=== PATIENT | male | born 1995 | race Caucasian/White ===

== ENCOUNTER 2017-01-30 19:59 | Emergency (ER) | payer SELFPAY ==
[~2017-01-30] VITALS: Ht 175.3 cm; Wt 57.6 kg
[~2017-01-30 19:59] MED LIST: DICY20TA3 PO; ONDA4TAB10 PO
[2017-01-30 20:00] VITALS: BP 131/75
--- NOTE | 2017-01-30 20:04 | ED.ADGEN ---
Past History Past Medical History: No Pertinent History Past Surgical History: Appendectomy Smoking: Non-smoker Alcohol Use: Rarely Drug Use: None Adult General Chief Complaint Chief Complaint Abdominal pain HPI HPI Patient is a 21 year old male who presents with I'll pain. He states been going on for several weeks. Very intermittent but this is been a baseline in the right lower quadrant and then today started going to the left lower quadrant. He states he did have loose stools yesterday times one. He also complains of some burning with urination for the last several weeks states the pain got worse at noon when he woke up so he went to [facility] and had a CT scan and labs done then. He states he was told he had free fluid in his pelvis and was told follow-up. He was discharged with tramadol every he has not yet to get this filled. He presents to the ER tonjuma stating the pain has gotten worse since he was seen earlier today. States the pain is a 10 out 10 minutes and bilateral lower quadrants and feels like his testicles are hurting. He states he's had his appendix removed in 2013. Otherwise he denies any past medical history or any medications. Review of Systems Review of Systems Constitutional: Denies fever or chills [] Eyes: Denies change in visual acuity, redness, or eye pain [] HENT: Denies nasal congestion or sore throat [] Respiratory: Denies cough or shortness of breath [] Cardiovascular: No additional information not addressed in HPI [] GI: Denies abdominal pain, nausea, vomiting, bloody stools or diarrhea [] : Denies dysuria or hematuria [] Musculoskeletal: Denies back pain or joint pain [] Integument: Denies rash or skin lesions [] Neurologic: Denies headache, focal weakness or sensory changes [] Endocrine: Denies polyuria or polydipsia [] Current Medications Current Medications Current Medications Medications (Trade) Dose Ordered Sig/Iliana Start Time Stop Time Status Last Admin Dose Admin Morphine Sulfate (Morphine 2mg Syringe) 2 mg PRN Q15MIN PRN 01/30/17 20:30 01/31/17 20:29 01/30/17 21:15 2 MG Ondansetron HCl (Zofran) 4 mg 1X ONCE 01/30/17 20:45 01/30/17 20:46 DC 01/30/17 20:45 4 MG Sodium Chloride 1,000 ml @ 1,000 mls/hr Q1H 01/30/17 20:45 01/30/17 21:44 DC 01/30/17 20:45 1,000 MLS/HR Allergies Allergies Allergies Coded Allergies Type Severity Reaction Last Updated Verified No Known Drug Allergies 10/24/13 No Physical Exam Physical Exam Constitutional: Well developed, well nourished, no acute distress, non-toxic appearance. [] HENT: Normocephalic, atraumatic, bilateral external ears normal, oropharynx moist, no oral exudates, nose normal. [] Eyes: PERRLA, EOMI, conjunctiva normal, no discharge. [] Neck: Normal range of motion, no tenderness, supple, no stridor. [] Cardiovascular:Heart rate regular rhythm, no murmur [] Lungs & Thorax: Bilateral breath sounds clear to auscultation [] Abdomen/testicles: Bowel sounds normal, soft, nontender to palpation diffusely, no rebound or guarding no masses, no pulsatile masses. Testicles tender bilaterally no masses appreciated Skin: Warm, dry, no erythema, no rash. [] Back: No tenderness, no CVA tenderness. [] Extremities: No tenderness, no cyanosis, no clubbing, ROM intact, no edema. [] Neurologic: Alert and oriented X 3, normal motor function, normal sensory function, no focal deficits noted. [] Psychologic: Affect normal, judgement normal, mood normal. [] Current Patient Data Vital Signs Vital Signs Date Time Temp Pulse Resp B/P (MAP) Pulse Ox O2 Delivery O2 Flow Rate FiO2 01/30/17 21:15 20 98 Room Air Lab Results Laboratory Tests Test 01/30/17 20:50 01/30/17 20:55 Urine Collection Type Unknown Urine Color Diana Urine Clarity Clear Urine pH 7.0 Urine Specific [place] 1.015 Urine Protein 30 mg/dl (NEG-TRACE) Urine Glucose (UA) Neg mg/dL (NEG) Urine Ketones (Stick) Neg mg/dL (NEG) Urine Blood Small (NEG) Urine Nitrite Neg (NEG) Urine Bilirubin Neg (NEG) Urine Urobilinogen Dipstick 0.2 mg/dL (0.2 mg/dL) Urine Leukocyte Esterase Neg (NEG) Urine RBC 1-2 /HPF (0-2) Urine WBC Rare /HPF (0-4) Urine Squamous Epithelial Cells Occ /LPF Urine Bacteria 0 /HPF (0-FEW) Urine Opiates Screen Neg (NEG) Urine Methadone Screen Neg (NEG) Urine Barbiturates Neg (NEG) Urine Phencyclidine Screen Neg (NEG) Urine Amphetamine/Methamphetamine Neg (NEG) Urine Benzodiazepines Screen Neg (NEG) Urine Cocaine Screen Neg (NEG) Urine Cannabinoids Screen Pos (NEG) Urine Ethyl Alcohol Neg (NEG) White Blood Count 7.6 x10^3/uL (4.0-11.0) Red Blood Count 4.77 x10^6/uL (4.30-5.70) Hemoglobin 14.5 g/dL (13.0-17.5) Hematocrit 41.8 % (39.0-53.0) Mean Corpuscular Volume 88 fL (79-100) Mean Corpuscular Hemoglobin 30 pg (25-35) Mean Corpuscular Hemoglobin Concent 35 g/dL (31-37) Red Cell Distribution Width 13.0 % (11.5-14.5) Platelet Count 277 x10^3/uL (140-400) Neutrophils (%) (Auto) 62 % (31-73) Lymphocytes (%) (Auto) 25 % (24-48) Monocytes (%) (Auto) 11 % (0-9) H Eosinophils (%) (Auto) 1 % (0-3) Basophils (%) (Auto) 0 % (0-3) Neutrophils # (Auto) 4.7 x10^3uL (1.8-7.7) Lymphocytes # (Auto) 1.9 x10^3/uL (1.0-4.8) Monocytes # (Auto) 0.9 x10^3/uL (0.0-1.1) Eosinophils # (Auto) 0.1 x10^3/uL (0.0-0.7) Basophils # (Auto) 0.0 x10^3/uL (0.0-0.2) Sodium Level 141 mmol/L (136-145) Potassium Level 3.6 mmol/L (3.5-5.1) Chloride Level 105 mmol/L (98-107) Carbon Dioxide Level 29 mmol/L (21-32) Anion Gap 7 (6-14) Blood Urea Nitrogen 11 mg/dL (8-26) Creatinine 0.9 mg/dL (0.7-1.3) Estimated GFR (Cockcroft-Gault) 106.5 Glucose Level 99 mg/dL (70-99) Calcium Level 9.2 mg/dL (8.5-10.1) Total Bilirubin 0.4 mg/dL (0.2-1.0) Direct Bilirubin 0.2 mg/dL (0.0-0.2) Aspartate Amino Transferase (AST) 13 U/L (15-37) L Alanine Aminotransferase (ALT) 24 U/L (16-63) Alkaline Phosphatase 67 U/L (46-116) Creatine Kinase 81 U/L (39-308) Creatine Kinase MB (Mass) < 0.5 ng/mL (0.0-3.6) Creatine Kinase MB Relative Index 0.6 % (0-4) Total Protein 7.8 g/dL (6.4-8.2) Albumin 4.0 g/dL (3.4-5.0) Lipase 90 U/L (73-393) EKG EKG [] Radiology/Procedures Radiology/Procedures [address] [id number] IMAGING REPORT Signed PATIENT: DAY LOGAN ACCOUNT: [id number] : 1995 LOCATION: ER AGE: 21 SEX: M EXAM STATUS: REG ER ORD. PHYSICIAN: BLOSSOM KIM MD REASON: abd pain PROCEDURE: ABDOMEN COMPLETE PROCEDURE Complete abdomen ultrasound HISTORY Diffuse abdominal pain TECHNIQUE Grayscale and color Doppler sonography were utilized COMPARISON No prior FINDINGS Spleen length 11.0 centimeters. Pancreas, proximal IVC and proximal abdominal aorta are normal. Normal liver echogenicity. No liver mass. No gallstones, gallbladder wall thickening, pericholecystic fluid or sonographic Watson sign. No biliary ductal dilation the common bile duct has a diameter 3 millimeters. Right renal length 11.3 centimeters, left renal length 12.0 centimeters, no evidence of right or left renal mass or hydronephrosis. IMPRESSION Normal exam. Electronically signed by: Genoveva Win MD (January 30, 2017 22:23:34) DICTATED AND SIGNED BY: GENOVEVA WIN MD DATE: 01/30/17 2222 CC: BLOSSOM KIM MD; RADHA NUGENT MD ~ [place] [id number] IMAGING REPORT Signed PATIENT: DAY LOGAN ACCOUNT: [id number] : 1995 LOCATION: ER AGE: 21 SEX: M EXAM STATUS: REG ER ORD. PHYSICIAN: BLOSSOM KIM MD REASON: abd pain PROCEDURE: TESTICULAR/SCROTUM PROCEDURE Testicular ultrasound HISTORY Testicular swelling and abdominal pain TECHNIQUE Grayscale and duplex Doppler sonography was utilized COMPARISON No prior FINDINGS Right testicle measures 4.0 x 2.9 x 2.0 centimeters. Left testicle measures 3.4 x 2.4 x 2.0 centimeters. No testicular mass, edema, microlithiasis or hypervascularity. There is symmetric intact bilateral testicular blood flow by duplex Doppler sonography with normal arterial waveforms documented. No enlargement or hypervascularity of the epididymis bilaterally. Left epididymal 8 millimeter cyst. No extratesticular mass. Minimal hydroceles. IMPRESSION Testicles are normal. Minimal hydroceles. 8 millimeter left epididymal cyst. Electronically signed by: Genoveva Win MD (January 30, 2017 22:24:58) DICTATED AND SIGNED BY: GENOVEVA WIN MD DATE: 01/30/172223 CC: BLOSSOM KIM MD; RADHA NUGENT MD ~ Course & Med Decision Making Course & Med Decision Making Pertinent Labs and Imaging studies reviewed. (See chart for details) Testicular and scrotal ultrasound, abdominal ultrasound did not show any acute abnormalities. I did obtain records from [facility] which shows a CT scan that has small pelvic ascites noted otherwise no other acute abnormality on his CT scan. Patient is feeling better he's been watched for 5 hours. His repeat abdominal exam is unremarkable. Patient's agreeable being discharged home and follow-up with clinic tomorrow. Return precautions given his real plan be discharged in stable condition at this time. Final Impression Final Impression Abdominal pain Problems: Dragon Disclaimer Dragon Disclaimer This electronic medical record was generated, in whole or in part, using a voice recognition dictation system. BLOSSOM KIM MD January 30, 2017 20:04
[2017-01-30] MEDS ORDERED: MORPHINE SULFATE 2 MG/ML DISP.SYRIN. IV/SQ PRN (20:30)
[2017-01-30] MEDS ORDERED: IV NORMAL SALINE 1,000ML 1,000 ML IV SCH (20:45)
[2017-01-30] MEDS ORDERED: ONDANSETRON PF 4 MG/2 ML VIAL. IV ONE (20:45)
[2017-01-30 21:15] LABS: BASO % 0 % (0-3); EOS # 0.1 x10^3/uL (0.0-0.7); EOS % 1 % (0-3); HEMATOCRIT 41.8 % (39.0-53.0); HEMOGLOBIN 14.5 g/dL (13.0-17.5); LYMPH # 1.9 x10^3/uL (1.0-4.8); LYMPH % 25 % (24-48); MEAN CORPUSCULAR HEMOGLOBIN 30 pg (25-35); MEAN CORPUSCULAR HGB CONC 35 g/dL (31-37); MEAN CORPUSCULAR VOLUME 88 fL (79-100); MONO # 0.9 x10^3/uL (0.0-1.1); MONO % 11 % (0-9); NEUT # 4.7 x10^3uL (1.8-7.7); NEUT % 62 % (31-73); PLATELET COUNT 277 x10^3/uL (140-400); RED BLOOD COUNT 4.77 x10^6/uL (4.30-5.70); WHITE BLOOD COUNT 7.6 x10^3/uL (4.0-11.0)
[2017-01-30 21:22] LABS: AMPHETAMINE/METHAMPHETAMINE NEG (NEG); BARBITURATES NEG (NEG); BENZODIAZEPINES NEG (NEG); CANNABINOIDS POS (NEG); COCAINE NEG (NEG); METHADONE NEG (NEG); OPIATES NEG (NEG); PHENCYCLIDINE NEG (NEG)
[2017-01-30 21:31] LABS: BILIRUBIN,URINE NEG (NEG); CLARITY,URINE CLEAR; COLOR,URINE AMBER; GLUCOSE,URINE NEG (NEG); NITRITE,URINE NEG (NEG); UROBILINOGEN,URINE 0.2 mg/dL (0.2 mg/dL)
[2017-01-30 21:32] LABS: BACTERIA,URINE 0 /HPF (0-FEW); SQUAMOUS EPITHELIAL CELL,UR OCC /LPF; WBC,URINE RARE /HPF (0-4)
[2017-01-30 21:32] LABS: ALK PHOS 67 U/L (46-116); ALT (SGPT) 24 U/L (16-63); ANION GAP 7 (6-14); AST (SGOT) 13 U/L (15-37); BLOOD UREA NITROGEN 11 mg/dL (8-26); CALCIUM 9.2 mg/dL (8.5-10.1); CARBON DIOXIDE 29 mmol/L (21-32); CHLORIDE 105 mmol/L (98-107); CREATINE KINASE 81 U/L (39-308); CREATININE 0.9 mg/dL (0.7-1.3); DIRECT BILIRUBIN 0.2 mg/dL (0.0-0.2); GFR 106.5; GLUCOSE 99 mg/dL (70-99); LIPASE 90 U/L (73-393); POTASSIUM 3.6 mmol/L (3.5-5.1); SODIUM 141 mmol/L (136-145); TOTAL BILIRUBIN 0.4 mg/dL (0.2-1.0); TOTAL PROTEIN 7.8 g/dL (6.4-8.2)
--- NOTE | 2017-01-30 22:25 | RAD ---
PROCEDURE Complete abdomen ultrasound HISTORY Diffuse abdominal pain TECHNIQUE Grayscale and color Doppler sonography were utilized COMPARISON No prior FINDINGS Spleen length 11.0 centimeters. Pancreas, proximal IVC and proximal abdominal aorta are normal. Normal liver echogenicity. No liver mass. No gallstones, gallbladder wall thickening, pericholecystic fluid or sonographic Watson sign. No biliary ductal dilation the common bile duct has a diameter 3 millimeters. Right renal length 11.3 centimeters, left renal length 12.0 centimeters, no evidence of right or left renal mass or hydronephrosis. IMPRESSION Normal exam. Electronically signed by: Demond Win MD (January 30, 2017 22:23:34)
--- NOTE | 2017-01-30 22:26 | RAD ---
PROCEDURE Testicular ultrasound HISTORY Testicular swelling and abdominal pain TECHNIQUE Grayscale and duplex Doppler sonography was utilized COMPARISON No prior FINDINGS Right testicle measures 4.0 x 2.9 x 2.0 centimeters. Left testicle measures 3.4 x 2.4 x 2.0 centimeters. No testicular mass, edema, microlithiasis or hypervascularity. There is symmetric intact bilateral testicular blood flow by duplex Doppler sonography with normal arterial waveforms documented. No enlargement or hypervascularity of the epididymis bilaterally. Left epididymal 8 millimeter cyst. No extratesticular mass. Minimal hydroceles. IMPRESSION Testicles are normal. Minimal hydroceles. 8 millimeter left epididymal cyst. Electronically signed by: Demond Win MD (January 30, 2017 22:24:58)
--- NOTE | 2017-01-31 07:11 | RAD ---
Indication: Lower abdominal pain. Time of exam 2040 hours. The heart size is normal. The lungs are clear. No free air is identified. The bowel gas pattern is nonobstructed. There is contrast within the urinary bladder. Impression: No acute abnormality is detected.
== END 2017-01-31 01:50 | disposition home or self-care (01) ==
LOC: ER 20:05
DX: R10.31 Right lower quadrant pain (principal); R39.198 Other difficulties with micturition; Z90.49 Acquired absence of other specified parts of digestive tract
CPT/HCPCS: 36415; 74022; 76700; 76870; 80048; 80076; 80305; 81001; 82553; 83690; 85027; 96361; 96374; 96375; 99285; J2270; J2405; G0481; J7030

== ENCOUNTER 2021-02-11 21:03 | Emergency (ER) | payer OTHER ==
[~2021-02-11] VITALS: Ht 172.7 cm; Wt 61.3 kg
[2021-02-11] MEDS ORDERED: SULF1TAB24 PO (21:50)
[2021-02-11] MEDS ORDERED: AMOX1TAB61 PO (21:50)
--- NOTE | 2021-02-11 21:50 | PHYS DOC ---
Past History Past Medical History: No Pertinent History Past Surgical History: Appendectomy Smoking: Non-smoker Alcohol Use: Rarely Drug Use: None General Adult EDM: Chief Complaint: SKIN RASH/ABSCESS HPI: HPI: 25-year-old male presents with a rash of the right arm. Patient got what he thought was a bug bite yesterday on his right wrist. Today he has a red streak up the right of his forearm all the way up his arm almost to the axilla. He decided this was not good and then came to the emergency room. He felt like he had a low-grade fever yesterday but not one today. Patient has no significant medical history. No history of MRSA. He has no other complaints at this time. Review of Systems: Review of Systems: Constitutional: Denies fever or chills Eyes: Denies change in visual acuity HENT: Denies nasal congestion or sore throat Respiratory: Denies cough or shortness of breath Cardiovascular: Denies chest pain or edema GI: Denies abdominal pain, nausea, vomiting, bloody stools or diarrhea : Denies dysuria Musculoskeletal: Denies back pain or joint pain Integument: Rash Neurologic: Denies headache, focal weakness or sensory changes Endocrine: Denies polyuria or polydipsia Lymphatic: Denies swollen glands Psychiatric: Denies depression or anxiety Allergies: Allergies: Allergies Coded Allergies Type Severity Reaction Last Updated Verified No Known Drug Allergies 10/24/13 No Physical Exam: PE: Constitutional: Well developed, well nourished, no acute distress, non-toxic appearance. [] HENT: Normocephalic, atraumatic, bilateral external ears normal, oropharynx moist, no oral exudates, nose normal. [] Eyes: PERRLA, EOMI, conjunctiva normal, no discharge. [] Neck: Normal range of motion, no tenderness, supple, no stridor. [] Cardiovascular:Heart rate regular rhythm, no murmur [] Lungs & Thorax: Bilateral breath sounds clear to auscultation [] Abdomen: Bowel sounds normal, soft, no tenderness, no masses, no pulsatile masses. [] Skin: 1 cm erythematous warm papule of the right wrist with red streak all the way up the patient's right arm. [] Back: No tenderness, no CVA tenderness. [] Extremities: No tenderness, no cyanosis, no clubbing, ROM intact, no edema. [] Neurologic: Alert and oriented X 3, normal motor function, normal sensory function, no focal deficits noted. [] Psychologic: Affect normal, judgement normal, mood normal. [] EKG: EKG: [] Radiology/Procedures: Radiology/Procedures: [] Heart Score: C/O Chest Pain: N/A Risk Factors: Risk Factors: DM, Current or recent (<one month) smoker, HTN, HLP, family history of CAD, obesity. Risk Scores: Score 0 - 3: 2.5% MACE over next 6 weeks - Discharge Home Score 4 - 6: 20.3% MACE over next 6 weeks - Admit for Clinical Observation Score 7 - 10: 72.7% MACE over next 6 weeks - Early Invasive Strategies Course & Med Decision Making: Course & Med Decision Making Pertinent Labs and Imaging studies reviewed. (See chart for details) I did not palpate any abscess to drain, but the patient does appear to have streaking. I will treat him with IV Zosyn and p.o. Bactrim. I will discharge him with Bactrim and Augmentin. His labs remarkable for a white count of 15 with a mild left shift. He is stable for discharge at this time. [] Dragon Disclaimer: Dragon Disclaimer: This electronic medical record was generated, in whole or in part, using a voice recognition dictation system. Departure Departure: Impression: Primary Impression: Cellulitis of right forearm Disposition: HOME / SELF CARE / HOMELESS Condition: STABLE Referrals: PCP,NO (PCP) Patient Instructions: Cellulitis, Adsn-hm-Tcpt Scripts Sulfamethoxazole/Trimethoprim (BACTRIM DS TABLET) 1 Each Tablet 1 TAB PO BID for cellulitis for 7 Days, #14 TAB 0 Refills Prov: DONTE BETTS DO 02/11/21 Amoxicillin/Potassium Clav (AUGMENTIN 875-125 TABLET) 1 Each Tablet 1 TAB PO BID for cellulitis for 7 Days, #14 TAB 0 Refills Prov: DONTE BETTS DO 02/11/21 DONTE BETTS DO February 11, 2021 21:50
[2021-02-11] MEDS ORDERED: IV NORMAL SALINE 50ML 50 ML ONE (21:57)
[2021-02-11] MEDS ORDERED: PIPERACILLIN/TAZOBACTAM 3.375 GM VIAL IV ONE (21:57)
[2021-02-11] MEDS ORDERED: PIPERACILLIN/TAZOBACTAM 3.375 GM in IV NORMAL SALINE 50ML 50 ML IV ONE (22:00)
[2021-02-11] MEDS ORDERED: SMZ/TMP 800/160MG TABLET. PO ONE (22:00)
[2021-02-11 22:15] LABS: BASO % 0 % (0-3); EOS # 0.2 x10^3/uL (0.0-0.7); EOS % 1 % (0-3); HEMATOCRIT 40.4 % (39.0-53.0); HEMOGLOBIN 13.9 g/dL (13.0-17.5); LYMPH # 1.4 x10^3/uL (1.0-4.8); LYMPH % 9 % (24-48); MEAN CORPUSCULAR HEMOGLOBIN 31 pg (25-35); MEAN CORPUSCULAR HGB CONC 35 g/dL (31-37); MEAN CORPUSCULAR VOLUME 89 fL (79-100); MONO # 1.3 x10^3/uL (0.0-1.1); MONO % 9 % (0-9); NEUT % 81 % (31-73); PLATELET COUNT 209 x10^3/uL (140-400); RED BLOOD COUNT 4.55 x10^6/uL (4.30-5.70)
[2021-02-11 22:30] LABS: CREATININE 0.9 mg/dL (0.7-1.3); GFR 102.8; POTASSIUM 3.9 mmol/L (3.5-5.1)
[2021-02-11 22:36] LABS: ALBUMIN 3.8 g/dL (3.4-5.0); ALBUMIN/GLOBULIN RATIO 1.1 (1.0-1.7); TOTAL BILIRUBIN 0.4 mg/dL (0.2-1.0); TOTAL PROTEIN 7.4 g/dL (6.4-8.2)
[2021-02-11 22:55] VITALS: BP 122/68
== END 2021-02-11 22:56 | disposition home or self-care (01) ==
LOC: ER 21:03
DX: L03.113 Cellulitis of right upper limb (principal)
CPT/HCPCS: 36415; 80053; 85025; 96365; 99284; J2543